=== PATIENT | female | born 1965 | race Hispanic/Latino ===

== ENCOUNTER 2017-08-18 12:38 | Outpatient (CLI) | payer OTHER ==
--- NOTE | 2017-08-18 13:27 | MMO ---
LEFT DIAGNOSTIC MAMMOGRAM: Date: 08/18/17 COMPARISON: 07/21/17, 03/30/13. HISTORY: Calcifications in the left breast, which appear to be developing. FINDINGS: A ML view of the left breast, as well as spot magnification views of the left breast in the ML and C C projections were performed. Heterogeneously dense breast parenchyma is seen. There are scattered c alcifications throughout the left breast. However, there is a cluster if indeterminate calcification s in the lower outer aspect of the left breast. No mass is associated with these calcifications. Interpretation of this mammogram was performed with the assistance of computer-aided detection. IMPRESSION: BIRADS 4: Suspicious Abnormality - Biopsy Should Be Considered The calcifications in the left breast are suspicious and stereotactic biopsy of these calcifications is recommended. POS: AILIN
== END 2017-08-18 12:39 | disposition home or self-care (01) ==
LOC: MAMMO 12:38
PROVIDERS: ATTEND Family Medicine
DX: R92.1 Mammographic calcification found on diagnostic imaging of breast (principal)
CPT/HCPCS: G0206-LT

== ENCOUNTER → 2017-09-16 | Day surgery (SDC) | payer OTHER ==
--- NOTE | 2017-09-16 09:30 | MMO ---
STEREOTACTIC LEFT BREAST BIOPSY: CLINICAL HISTORY: Indeterminate calcifications of the left breast. PROCEDURE: Informed consent was obtained. The patient was escorted to the procedural suite. The patient was pl aced in the prone position with the left breast in compression. The calcifications of interest withi n the left breast were localized and targeted with stereotactic coordinates. After standard sterile prepping and draping and topical anesthesia was performed, a small skin incision was made through whi ch a 10-gauge vacuum-assist stereotactic biopsy needle was advanced to the leaking edge of the calcif ications, confirmed with tangential imaging, and the needle was then deployed into the site of calcif ication. Subsequently, 6 core specimens were acquired which were then radiographed, confirming calci fications of interest within the radiograph specimens. At this point, the needle was removed. A bio psy marking clip was then advanced to and deployed within the site of biopsy, with deployment of the clip confirmed with mammographic imaging. Otherwise, all devices were removed from the patient, and the patient tolerated the procedure well wi thout evidence of complication. Hemostasis was achieved. IMPRESSION: 1. Technically successful stereotactic biopsy of left breast. 2. Technically successful biopsy marking clip deployment within the left breast. Biopsy results will be conveyed to the patient via the mammography navigator, Gill Mejía, when the p athology results are received. POS: AILIN
--- NOTE | 2017-09-16 11:27 | MMO ---
LEFT UNILATERAL MAMMOGRAM: Date: 09/16/17 HISTORY: Postop stereotactic biopsy. FINDINGS: A biopsy clip is seen in the mid more slightly outer anterior left breast in the area of calcificatio ns. IMPRESSION: Post biopsy images confirm biopsy clip placement. POS: AILIN
== END ==
LOC: MAMMO 06:46
PROVIDERS: ATTEND Family Medicine
PROC: 0HBU3ZX Excision of Left Breast, Percutaneous Approach, Diagnostic (ICD-10-PCS; principal; 2017-09-16)
DX: N60.12 Diffuse cystic mastopathy of left breast (principal)
CPT/HCPCS: 19081; 76098; 88305; G0206-LT

== ENCOUNTER 2018-03-23 08:17 | Outpatient (CLI) | payer OTHER | END 2018-03-23 08:18 | disposition home or self-care (01) | LOC: BICMAMMO 08:17 | PROVIDERS: ATTEND Family Medicine | DX: N60.02 Solitary cyst of left breast (principal); N60.32 Fibrosclerosis of left breast; R92.1 Mammographic calcification found on diagnostic imaging of breast | CPT/HCPCS: G0279 ==

== ENCOUNTER 2018-09-29 07:58 | Outpatient (CLI) | payer OTHER | END 2018-09-29 07:59 | disposition home or self-care (01) | LOC: BICMAMMO 07:58 | PROVIDERS: ATTEND Family Medicine | DX: R92.1 Mammographic calcification found on diagnostic imaging of breast (principal); R92.2 Inconclusive mammogram; Z98.890 Other specified postprocedural states | CPT/HCPCS: 77063; 77067 ==